=== PATIENT | male | born 1990 | race Caucasian/White ===

== ENCOUNTER 2017-09-09 21:01 | Emergency (ER) | payer OTHER ==
[~2017-09-09] VITALS: Ht 177.8 cm; Wt 75.3 kg
[2017-09-09 21:27] VITALS: BP 149/93
[2017-09-09 22:22] LABS: ABSOLUTE BASOPHIL COUNT 0.1 /CUMM (0.0-0.2); ABSOLUTE EOSINOPHIL COUNT 0.1 /CUMM (0.0-0.7); ABSOLUTE GRANULOCYTE CT 5.2 /CUMM (1.4-6.5); ABSOLUTE LYMPH COUNT 3.1 /CUMM (1.2-3.4); ABSOLUTE MONOCYTE COUNT 0.6 /CUMM (0.10-0.60); BASOPHIL % 0.7 % (0.0-2.0); EOSINOPHIL % 1.5 % (0-5); GRANULOCYTE % 57.3 % (42.2-75.2); HEMATOCRIT 46.9 % (42-52); MEAN CORPUSCULAR HGB 29.9 PG (27.0-31.0); MEAN CORPUSCULAR HGB CONC 33.8 G/DL (33.0-37.0); MEAN CORPUSCULAR VOLUME 88.4 FL (80.0-94.0); MEAN PLATELET VOLUME 8.1 FL (7.4-10.4); PLATELET COUNT 292 /CUMM (130-400); RBC DISTRIBUTION WIDTH 12.7 % (11.5-14.5); WHITE BLOOD CELL COUNT 9.1 /CUMM (4.8-10.8)
[2017-09-09] MEDS ORDERED: OMEPRAZOLE40 M1 PO (23:48)
--- NOTE | 2017-09-09 23:48 | ED GI/GU/ABDOMINAL COMPLAINT ---
History of Present Illness General Chief Complaint: Abdominal Pain/Flank Pain Stated Complaint: "ABDOMINAL PAIN TIME 3 WEEK TO A MONTH" Source: patient, family Exam Limitations: no limitations Vital Signs & Intake/Output Vital Signs & Intake/Output Vital Signs Date Time Temp Pulse Resp B/P B/P Pulse O2 O2 Flow FiO2 Mean Ox Delivery Rate 09/09 2126 96.9 69 18 149/93 97 Room Air ED Intake and Output 09/10 0000 09/09 1200 Intake Total Output Total Balance Patient 166 lb Weight Weight Estimated Measurement Method Allergies Coded Allergies: No Known Allergies (09/09/17) Reconcile Medications Omeprazole 40 MG CAPSULE. 1 CAP PO DAILY ABD PAIN Triage Note: PT TO ER C/C RUQ PAIN ON AND OFF X 1 MONTH. +N/V. STATES PAIN BECOMING MORE CONSISTENT. DENIES URINARY S/S. WAS SEEN AT [facility], HAD NEGATIVE UA DONE, PER PT Triage Nurses Notes Reviewed? yes Onset: Gradual Duration: week(s): (3-4), intermittent Quality/Severity: sharpness Location: right upper quadrant Radiation: no radiation No Modifying Factors: none HPI: 26-year-old male comes into emergency room with complaints of right upper abdominal pain is been going on for the past 4 weeks intermittently. Pain is sharp at times. Denies any vomiting but some associated nausea at times. Denies any change in bowel movement. Denies any burning with urination fever chills. Nothing seems to make the symptoms better or worse. No correlation with food. No prior history of these symptoms in the past. He comes in for further evaluation. [facility] and to come to the emergency room. (Donta Kaminski) Past History Travel History Traveled to [place] past 21 day No Medical History Any Pertinent Medical History? none Surgical History Surgical History: none Psychosocial History What is your primary language Kazakh Tobacco Use: Never used ETOH Use: occasional use Family History Hx Contributory? No (Donta Kaminski) Review of Systems Review of Systems Constitutional: Reports: no symptoms. EENTM: Reports: no symptoms. Respiratory: Reports: no symptoms. Cardiovascular: Reports: no symptoms. GI: Reports: see HPI. Genitourinary: Reports: no symptoms. Musculoskeletal: Reports: no symptoms. Skin: Reports: no symptoms. Neurological/Psychological: Reports: no symptoms. Hematologic/Endocrine: Reports: no symptoms. Immunologic/Allergic: Reports: no symptoms. All Other Systems: Reviewed and Negative (Donta Kaminski) Physical Exam Physical Exam General Appearance: well developed/nourished, no apparent distress, alert, awake Head: atraumatic, normal appearance Eyes: Bilateral: normal appearance, EOMI. Ears, Nose, Throat, Mouth: hearing grossly normal, moist mucous membrane Neck: normal inspection, full range of motion Respiratory: normal breath sounds, no respiratory distress Cardiovascular: regular rate/rhythm Gastrointestinal: soft, negative McBurney's point, no rebound tenderness, some mild pain to the right upper quadrant, negative Duval sign, Back: normal inspection Extremities: normal range of motion Neurologic/Psych: awake, alert, oriented x 3, normal gait Skin: intact, normal color Core Measures ACS in differential dx? No Sepsis Present: No Sepsis Focused Exam Completed? No (Donta Kaminski) Progress Differential Diagnosis: appendicitis, biliary colic, bowel obstruction, cholecystitis, diverticulitis, gastritis, inflamm bowel dis, pancreatitis, peptic ulcer, PUD/GERD Plan of Care: Orders Procedure Date/time Status COMPREHENSIVE METABOLIC PANEL 09/09 2204 Complete CBC WITHOUT DIFFERENTIAL 09/09 2204 Complete URINALYSIS 09/09 2147 Complete Laboratory Tests 09/09/172212: Anion Gap 15, Estimated GFR > 60, BUN/Creatinine Ratio 17.8, Glucose 87, Calcium 10.2, Total Bilirubin 1.1, AST 33, ALT 33, Alkaline Phosphatase 68, Total Protein 8.4 H, Albumin 5.2 H, Globulin 3.2, Albumin/Globulin Ratio 1.6, CBC w Diff NO MAN DIFF REQ, RBC 5.30, MCV 88.4, MCH 29.9, RDW 12.7, MPV 8.1, Gran % 57.3, Lymphocytes % 34.4, Monocytes % 6.1, Eosinophils % 1.5, Basophils % 0.7, Absolute Granulocytes 5.2, Absolute Lymphocytes 3.1, Absolute Monocytes 0.6, Absolute Eosinophils 0.1, Absolute Basophils 0.1, PUBS MCHC 33.8 09/09/172144: Urinalysis LIGHT H, Urine Color YEL, Urine Clarity HAZY H, Urine pH 6.0, Ur Specific [place] 1.025, Urine Protein TRACE H, Urine Ketones 40 H, Urine Nitrite NEG, Urine Bilirubin NEG@ICTO, Urine Urobilinogen 1.0, Ur Leukocyte Esterase NEG, Ur Microscopic SEDIMENT EXAMINED, Urine RBC 1-3, Urine Crystals RARE CA OX, Urine Mucus MANY H, Urine Hemoglobin TRACE-INTACT H, Urine Glucose NEG Initial ED EKG: none Comments: 09/10/2017 12:58:31 AM Shared decision-making. Patient clinically looks well. Patient is in no apparent distress. Patient is nontoxic-appearing. Follow-up with primary care doctor. Patient was given a slip for outpatient ultrasound. Return sooner if any other concerns worsening symptoms. CT scan was offered to the patient but I explained to him I do not feel it is acutely necessary at this moment and he agrees with my plan of care. Patient will follow up with PCP and GI. Unfortunately ultrasound is not here at this time of night. He understands and agrees with plan of care. No acute abdomen. No suspicion for appendicitis at this time. (Shashank GARCIA,Donta) Departure Departure Disposition: HOME OR SELF CARE Condition: Stable Clinical Impression Primary Impression: Abdominal pain Referrals: Hoa WHITNEY,Marck Cobian (PCP/Family) Additional Instructions: Take omeprazole prescribed. Follow-up with skill training program coordinator. Follow-up for outpatient ultrasound of abdomen. Return if any concerns worsening symptoms. Please go over all results of today's visit with your primary care doctor. Contact your primary care doctor to let them know you were here in the emergency room. There may be nonspecific findings which may not be related to your visit today here in the emergency room but may require further evaluation and chronic monitoring by your primary care doctor. If you had a laceration today the chance of foreign body always remains. You should follow-up with your primary care doctor for recheck in 3-5 days for a wound check. If you had an x-ray done there is a chance that a fracture could have been missed on initial read and you should follow-up with your primary care doctor for repeat x-rays if symptoms persist. If your blood pressure was elevated here in the emergency room please have rechecked by sabino primary care doctor within the next 48. If you were prescribed a narcotic here in the emergency room or any type of controlled substances you're not allowed to drive while taking this medication or operate any type of heavy machinery. Narcotics can make you feel lightheaded dizziness nausea and can cause constipation. You may need to sweet pickle maker a stool softener. Thank you for choosing [facility] emergency room. Please return to the emergency room immediately if you have any other concerns worsening of symptoms. Departure Forms: Customer Survey D/C INS-APPENDICITIS EXCLUSION General Discharge Information Prescriptions: Current Visit Scripts Omeprazole 1 CAP PO DAILY #30 CAP Ref 1 (Shashank GARCIA,Donta) PA/STENCIL PRINTER Co-Sign Statement Statement: ED Attending supervision documentation- I saw and evaluated the patient. I have also reviewed all the pertinent lab results and diagnostic results. I agree with the findings and the plan of care as documented in the PA's/STENCIL PRINTER's documentation. x I have reviewed the ED Record and agree with the PA's/STENCIL PRINTER's documentation. [] Additions or exceptions (if any) to the PAs/STENCIL PRINTER's note and plan are summarized below: [] (Blane WHITNEY,Nicko)
== END 2017-09-10 ==
LOC: ERH 21:01
PROVIDERS: Emergency Medicine
DX: R10.11 Right upper quadrant pain (principal)
CPT/HCPCS: 81001